=== PATIENT | female | born 1955 | race Caucasian/White ===

== ENCOUNTER 2017-06-24 12:07 | Emergency (ER) | payer SELFPAY ==
[2017-06-24 12:51] LABS: #Basophils 0.1 thou/uL (0.0-0.2); #Eosinphils 0.3 thou/uL (0.0-0.7); #Lymphocytes 1.3 thou/uL (1.20-3.40); #Monocytes 0.5 thou/uL (0.11-0.59); %Eosinophils 4.2 % (0.0-10.0); %Lymphocytes 21.6 % (21.0-51.0); %Monocytes 8.1 % (0.0-10.0); Hematocrit 41.9 % (36.0-47.0); Mean Platelet Volume 7.2 fL (7.4-10.4); Red Blood Cell (RBC) Count 4.74 mill/uL (4.20-5.40); White Blood Cell (WBC) Count 6.1 thou/uL (4.8-10.8)
[2017-06-24 13:15] LABS: Troponin I Less than 0.010 ng/mL (< 0.028)
[2017-06-24 13:18] LABS: ALT (SGPT) 21 U/L (8-55); AST (SGOT) 22 U/L (5-34); Alkaline Phosphatase 71 U/L (40-150); Anion Gap 11 mmol/L (10-20); BUN (Urea Nitrogen) 15 mg/dL (9.8-20.1); Bilirubin, Total 0.2 mg/dL (0.2-1.2); Calc. Creatinine Clearance 0 mL/min (70-130); Carbon Dioxide 31 mmol/L (23-31); Chloride 102 mmol/L (98-107); Estimated GFR-MDRD 72; Globulin 3.3 g/dL (2.4-3.5); Protein, Total 7.9 g/dL (6.0-8.3)
--- NOTE | 2017-06-24 13:23 | RAD ---
THREE VIEWS OF LEFT SHOULDER: INDICATION: Shoulder pain. COMPARISON: None. FINDINGS: No acute fracture or subluxation is evident. There is chondrocalcinosis within the left AC joint. V isualized left lung is clear. IMPRESSION: No acute osseous abnormality. POS: [facility]
--- NOTE | 2017-06-24 13:26 | RAD ---
AP VIEW OF THE CHEST: INDICATION: Cough. IMPRESSION: No acute cardiopulmonary abnormality. The examination has not appreciably changed from a comparison dated 10/06/15. POS: [facility]
[2017-06-24] MEDS ORDERED: Ketorolac Tromethamine 30 MG/ML VIAL ONE (13:37)
--- NOTE | 2017-06-24 13:55 | CT ---
CT BRAIN: History: Trauma. Worsening pain. Headache. Technique: Noncontrast enhanced CT images of the brain obtained from the base of the skull through th e vertex. Brain and bone windows obtained. FINDINGS: Images demonstrate the brain to be unremarkable. No evidence of intracranial masses, hemorrhages, str okes or contusions seen. Ventricles are of normal size. IMPRESSION: Unremarkable CT brain. POS: [facility]
== END 2017-06-24 14:53 | disposition home or self-care (01) ==
LOC: ERS 12:07
DX: M25.512 Pain in left shoulder (principal); J45.909 Unspecified asthma, uncomplicated; Z79.84 Long term (current) use of oral hypoglycemic drugs; Z79.899 Other long term (current) drug therapy; W17.89XA Other fall from one level to another, initial encounter
CPT/HCPCS: 70450; 71010; 80053; 82553; 84484; 85025; 93005; 96374; J1885

== ENCOUNTER 2017-08-01 12:24 | Emergency (ER) | payer SELFPAY ==
--- NOTE | 2017-08-01 13:00 | RAD ---
PORTABLE CHEST: Date: 08/01/17 HISTORY: Weakness and cough. FINDINGS: Lungs are clear. Heart and mediastinum appear normal. Vascular markings are normal. IMPRESSION: Unremarkable portable chest. POS: [facility]
[2017-08-01 13:09] LABS: #Eosinphils 0.2 thou/uL (0.0-0.7); #Lymphocytes 1.2 thou/uL (1.20-3.40); #Monocytes 0.4 thou/uL (0.11-0.59); #Neutrophils 2.6 thou/uL (1.40-6.50); %Eosinophils 4.6 % (0.0-10.0); %Lymphocytes 26.5 % (21.0-51.0); %Monocytes 9.2 % (0.0-10.0); %Neutrophils 58.8 % (42.0-75.0); Hemoglobin 12.8 g/dL (12.0-16.0); Mean Corpuscular HGB CONC 33.2 g/dL (32.0-36.0); Mean Corpuscular Hemoglobin 29.4 pg (27.0-31.0); Mean Corpuscular Volume 88.5 fl (81.0-99.0); Mean Platelet Volume 6.9 fL (7.4-10.4); Platelet Count 244 thou/uL (130-400); RBC Distribution Width 13.2 % (11.5-14.5); Red Blood Cell (RBC) Count 4.35 mill/uL (4.20-5.40); White Blood Cell (WBC) Count 4.5 thou/uL (4.8-10.8)
[2017-08-01 13:36] LABS: ALT (SGPT) 18 U/L (8-55); AST (SGOT) 18 U/L (5-34); Albumin 4.1 g/dL (3.4-4.8); Alkaline Phosphatase 75 U/L (40-150); Anion Gap 16 mmol/L (10-20); BUN (Urea Nitrogen) 23 mg/dL (9.8-20.1); Bilirubin, Total 0.2 mg/dL (0.2-1.2); CK (CPK) 42 U/L (29-168); Calc. Creatinine Clearance 0 mL/min (70-130); Calcium 9.7 mg/dL (7.8-10.44); Carbon Dioxide 24 mmol/L (23-31); Chloride 103 mmol/L (98-107); Estimated GFR-MDRD 82; Globulin 2.9 g/dL (2.4-3.5); Glucose 126 mg/dL (80-115); Potassium 3.8 mmol/L (3.5-5.1); Sodium 139 mmol/L (136-145)
[2017-08-01 13:39] LABS: Troponin I Less than 0.010 ng/mL (< 0.028)
[2017-08-01 14:31] LABS: Bilirubin Negative (Negative); Blood, Urine Negative (Negative); Clarity CLEAR (Clear); Glucose, Urine (Dipstick) >=1000 mg/dL (Negative); Leukocyte Negative (Negative); Nitrite Negative (Negative); Protein, Urine (Dipstick) Negative (Neg-Trace); Specific Gravity, Urine 1.028 (1.002-1.036); Urobilinogen 0.2 mg/dL (0.2-1.0); pH, Urine 6.5 (5.0-9.0)
--- NOTE | 2017-08-01 15:31 | CT ---
CT ANGIOGRAM THORAX WITH IV CONTRAST AND 3D RECONSTRUCTIONS: DATE: 08/01/17. HISTORY: Cough and dyspnea. Hemoptysis. COMPARISON: 10/06/15. FINDINGS: No filling defects are seen in the pulmonary artery system to suggest a pulmonary embolus. Thoracic aorta is normal in caliber without evidence of an aortic dissection. There is linear and patchy density seen within the lateral aspect of the right lower lobe probably re lated to atelectasis and/or area of scarring. There has been interval development of a small right p leural effusion and atelectasis. The left lung is clear. No discrete pulmonary nodule or mass is se en. There are post cholecystectomy changes with evidence of pneumobilia again present. Surgical clips ar e also seen in the region of the pancreatic head. No other interval change. IMPRESSION: 1. No CT evidence of a pulmonary embolus. 2. Findings likely related to atelectasis and/or scarring in the right lower lobe. 3. Interval development of a small right pleural effusion and atelectasis. POS: [facility]
[2017-08-01] MEDS ORDERED: ISOVUE-370 76%-LOCM 1 ML ONE (16:23)
== END 2017-08-01 16:46 | disposition home or self-care (01) ==
LOC: ERS 12:24
DX: B34.9 Viral infection, unspecified (principal); E86.0 Dehydration; J45.909 Unspecified asthma, uncomplicated; Z79.899 Other long term (current) drug therapy
CPT/HCPCS: 36415; 71045; 71275; 80053; 81003; 82553; 84484; 85025; 85379; 87804; 94640; 96360; 96361; J7620

== ENCOUNTER 2020-02-09 17:18 | Inpatient (IN) | payer OTHER, SELFPAY ==
[2020-02-09 17:50] LABS: #Eosinphils 0.2 thou/uL (0.0-0.7); #Monocytes 0.5 thou/uL (0.11-0.59); #Neutrophils 3.4 thou/uL (1.40-6.50); %Basophils 0.7 % (0.0-1.0); %Eosinophils 3.4 % (0.0-10.0); %Lymphocytes 32.6 % (21.0-51.0); %Monocytes 8.7 % (0.0-10.0); %Neutrophils 54.6 % (42.0-75.0); Hemoglobin 12.6 g/dL (12.0-16.0); Mean Corpuscular HGB CONC 34.5 g/dL (32.0-36.0); Mean Corpuscular Hemoglobin 30.7 pg (27.0-31.0); Mean Corpuscular Volume 89.1 fL (78.0-98.0); Mean Platelet Volume 7.8 fL (7.4-10.4); Platelet Count 257 thou/uL (130-400); RBC Distribution Width 12.3 % (11.5-14.5); Red Blood Cell (RBC) Count 4.11 mill/uL (4.20-5.40); White Blood Cell (WBC) Count 6.2 thou/uL (4.8-10.8)
--- NOTE | 2020-02-09 18:02 | RAD ---
EXAM: Single view of the chest HISTORY: Chest pain and palpitations COMPARISON: 08/01/2017 FINDINGS: Single view of the chest shows a normal sized cardiomediastinal silhouette. There is no gely dence of consolidation, mass, or pleural effusion. The bones are unremarkable IMPRESSION: No evidence of acute cardiopulmonary disease
[2020-02-09 18:13] LABS: ALT (SGPT) 19 U/L (8-55); AST (SGOT) 22 U/L (5-34); Albumin 4.1 g/dL (3.4-4.8); Alkaline Phosphatase 79 U/L (40-110); Anion Gap 15 mmol/L (10-20); BUN (Urea Nitrogen) 26 mg/dL (9.8-20.1); Bilirubin, Total Less than 0.2 mg/dL (0.2-1.2); CK (CPK) 29 U/L (29-168); Calc. Creatinine Clearance 0 mL/min (70-130); Calcium 9.8 mg/dL (7.8-10.44); Carbon Dioxide 27 mmol/L (23-31); Chloride 98 mmol/L (98-107); Estimated GFR-MDRD 69; Glucose 133 mg/dL (80-115); Potassium 3.9 mmol/L (3.5-5.1); Protein, Total 7.1 g/dL (6.0-8.3); Sodium 136 mmol/L (136-145)
[2020-02-09] MEDS ORDERED: Aspirin Chewable 81 MG TAB ONE (18:32)
[2020-02-09] MEDS ORDERED: HYDROcodone/Acetaminophen 5/325 mg Tablet PO PRN (19:38)
[2020-02-09] MEDS ORDERED: Calcium Carbonate 500 MG ChewTAB PO PRN (19:38)
[2020-02-09] MEDS ORDERED: Acetaminophen 650 MG Suppository PR PRN (19:38)
[2020-02-09] MEDS ORDERED: Nitroglycerin 0.4 MG TAB (25 Tab Bottle) PO PRN (19:38)
[2020-02-09] MEDS ORDERED: Acetaminophen 325 MG TAB PO PRN (19:38)
--- NOTE | 2020-02-09 19:42 | PDOC.HHP ---
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 patient states she was on her usual state of health until today when she started with palpitations. patient states she began to feel weak dizzy and ligheaded with a chest pressure , she took her blood pressure and it was on the 60s/40s range with elevated HR over the 100s, she states the bloop pressure machine had an alert for irregular heartbeat. patient refers this lasted for over 15mins for which she decided to come to hospital for evaluation. she states has a hx of PVCs for which metoprolol 50 was started but never had she had an episode like today. patient refers SOB which nebulizer did not improve and diaphoresis. patients describes her pain as retrosternal 8/10 at the worse intensity to radiated to L arm. Hospitalist ROS - Review of Systems All other systems reviewed; all pertinent +/- noted in HPI/Subj Hospitalist History - Past Surgical History Other Surgical History: partial pancretic resection - Family History Family History: reports: no pertinent history - Social History Smoking Status: Never smoker Alcohol: reports: Occassional Drugs: reports: none Living Situation: With Family - Exam General Appearance: NAD, awake alert Eye: PERRL, anicteric sclera ENT: normocephalic atraumatic, no oropharyngeal lesions Neck: supple, symmetric, no JVD Heart: RRR, no murmur, no gallops Respiratory: CTAB, no wheezes, no rales Gastrointestinal: soft, non-tender, non-distended, normal bowel sounds Extremities: no cyanosis, no clubbing, no edema Skin: normal turgor, no lesions, no rashes Neurological: cranial nerve grossly intact, normal sensation to touch, no weakness Musculoskeletal: normal tone, normal strength, no muscle wasting Psychiatric: normal affect, normal behavior, A&O x 3 Hospitalist Results - Labs Result Diagrams: 02/09/20 17:39 02/09/20 17:39 Lab results: WBC 6.2 thou/uL (4.8-10.8) 02/09/20 17:39 Hgb 12.6 g/dL (12.0-16.0) 02/09/20 17:39 Hct 36.6 % (36.0-47.0) 02/09/20 17:39 MCV 89.1 fL (78.0-98.0) 02/09/20 17:39 Plt Count 257 thou/uL (130-400) 02/09/20 17:39 Neutrophils % 54.6 % (42.0-75.0) 02/09/20 17:39 Sodium 136 mmol/L (136-145) 02/09/20 17:39 Potassium 3.9 mmol/L (3.5-5.1) 02/09/20 17:39 Chloride 98 mmol/L (98-107) 02/09/20 17:39 Carbon Dioxide 27 mmol/L (23-31) 02/09/20 17:39 BUN 26 mg/dL (9.8-20.1) H 02/09/20 17:39 Creatinine 0.83 mg/dL (0.6-1.1) 02/09/20 17:39 Glucose 133 mg/dL (80-115) H 02/09/20 17:39 Calcium 9.8 mg/dL (7.8-10.44) 02/09/20 17:39 Total Bilirubin Less than 0.2 mg/dL (0.2-1.2) L 02/09/20 17:39 AST 22 U/L (5-34) 02/09/20 17:39 ALT 19 U/L (8-55) 02/09/20 17:39 Alkaline Phosphatase 79 U/L (40-110) 02/09/20 17:39 Creatine Kinase 29 U/L (29-168) 02/09/20 17:39 Troponin I Less than 0.010 ng/mL (< 0.028) 02/09/20 17:39 Serum Total Protein 7.1 g/dL (6.0-8.3) 02/09/20 17:39 Albumin 4.1 g/dL (3.4-4.8) 02/09/20 17:39 Hospitalist H&P A/P - Problem (1) Chest pain Code(s): R07.9 - CHEST PAIN, UNSPECIFIED Status: Acute (2) Diabetes Code(s): E11.9 - TYPE 2 DIABETES MELLITUS WITHOUT COMPLICATIONS Status: Acute (3) Bronchial asthma Code(s): J45.909 - UNSPECIFIED ASTHMA, UNCOMPLICATED Status: Acute (4) Insulinoma Code(s): D13.7 - BENIGN NEOPLASM OF ENDOCRINE PANCREAS Status: Acute - Plan Plan: 64y/o female with stated pmhx who comes due to an episodes of chest pain associated hypotension tachycardia sob and ligheadness chest pain - hx of pvc started on beta marek by manager general - ekg w/o st ischemic changes - initial troponin negative, will trend - cardiac monitoring with telemetry - continue with beta marek - seems to be secondary to arrythmia - no electrolyte disturbances - 2d echo - evaluation of modifiable risk factors with lipid panel and a1c - cxr w/o effusion. normal cardiac silhouette insulinoma / DM - insulinoma s/p partial pancreas resection with resulting DM - long acting insulin - ss + acc - adjust as necessary bronchial asthma - continue home meds
[2020-02-09] MEDS ORDERED: Ondansetron ODT 4 MG TAB ONE (20:08)
[2020-02-09 20:36] LABS: Troponin I Less than 0.010 ng/mL (< 0.028)
[2020-02-09] MEDS ORDERED: Dextrose 50% Abboject 50 ML SYRINGE SLOW IVP PRN (21:08)
[2020-02-09] MEDS ORDERED: Dextrose 5% in Water 1,000 ML IV PRN (21:08)
[2020-02-09 23:33] LABS: Troponin I Less than 0.010 ng/mL (< 0.028)
[2020-02-10] MEDS ORDERED: traZODone HCl 50 MG TAB PO SCH (01:15)
[2020-02-10 04:41] LABS: Hemoglobin A1c 8.3 % (4.0-6.0)
[2020-02-10 04:59] LABS: Cardiac Risk 4.6 (Less than 4.5); Magnesium 1.7 mg/dL (1.6-2.6)
[2020-02-10] MEDS ORDERED: Carvedilol 3.125 MG TAB PO SCH (08:00)
[2020-02-10] MEDS ORDERED: Sodium Chloride 0.9% 10 ML ONE (08:29)
[2020-02-10] MEDS ORDERED: Magnesium Sulfate 4 GM in Sodium Chloride 0.9% 250 ML 250 ML IVPB SCH (08:30)
[2020-02-10] MEDS ORDERED: Metoprolol Tartrate 50 MG TAB PO SCH (09:00)
[2020-02-10] MEDS: Aspirin 325 mg Enteric Coated Tablet PO SCH (09:35)
[2020-02-10] MEDS: Enoxaparin Sodium 40 MG/0.4 ML SYRINGE SC SCH (09:36)
[2020-02-10] MEDS ORDERED: Metoprolol Tartrate 25 MG TAB PO SCH (10:00)
[2020-02-10] MEDS: HumaLOG 300 UNITS/3 ML VIAL SC PRN ×3 (11:02→17:50)
--- NOTE | 2020-02-10 13:07 | PDOC.HOSPP ---
- Subjective Encounter Date: 02/10/20 Encounter Time: 10:00 Subjective: Patient seen and examined for chest discomfort along with palpitations. She also had hypotension with blood pressure in 60s at home. Denies any chest discomfort at this time. She feels dizzy especially on ambulation. - Objective Vital Signs & Weight: Vital Signs (12 hours) Temp Pulse Resp BP Pulse Ox 02/10/20 08:00 97.6 F 96 16 95/66 96 02/10/20 04:02 98.4 F 91 16 93/58 L 94 L Weight Weight 163 lb 14.4 oz I&O: 02/09/20 02/10/20 02/11/20 06:59 06:59 06:59 Intake Total 700 Balance 700 Result Diagrams: 02/09/20 17:39 02/09/20 17:39 Additional Labs: Accuchecks 02/10/20 11:05 POC Glucose 197 H EKG Reviewed by me: Yes (, Sánchez) Hospitalist ROS - Review of Systems Respiratory: denies: cough, dry, shortness of breath, hemoptysis, SOB with excertion, pleuritic pain, sputum, wheezing, other Cardiovascular: denies: chest pain, palpitations, orthopnea, paroxysmal noc. dyspnea, edema, light headedness, other Gastrointestinal: denies: nausea, vomiting, abdominal pain, diarrhea, constipation, melena, hematochezia, other - Medication Medications: Active Medications Generic Name Dose Route Start Last Admin Trade Name Freq PRN Reason Stop Dose Admin Hydrocodone Bitart/Acetaminophen 1 tab 02/09/20 19:38 02/10/20 09:34 [place] 5/325 PO 1 tab Q4H PRN Administration Moderate Pain (4-6) Aspirin 325 mg 02/10/20 09:00 02/10/20 09:35 Ecotrin PO 325 mg DAILY MONICA Administration Enoxaparin Sodium 40 mg 02/10/20 09:00 02/10/20 09:36 Lovenox SC 40 mg 0900 MONICA Administration Insulin Human Lispro 0 units 02/09/20 21:08 02/10/20 11:02 Humalog SC 2 unit .MILD SLIDING SCALE PRN Administration Mild Correctional Scale - Exam General Appearance: NAD Neck: supple, no JVD Heart: RRR, no gallops, no rubs, normal peripheral pulses Respiratory: no wheezes, no rales, no ronchi, normal chest expansion Gastrointestinal: soft, non-distended, normal bowel sounds, no guarding, no rigidity Extremities: no cyanosis, no clubbing, no edema Extremities - other findings: no calf tenderness Neurological: no focal deficits Psychiatric: normal affect, A&O x 3 Hosp A/P - Plan DVT proph w/lovenox, DVT proph w/SCDs CP/Near syncope with hypotension with blood pressure of 60/40 Palpitations probably due to symptomatic PVCs Hypomagnesemia Mitral valve prolapse Diabetes mellitus type 2 Moderate persistent asthma History of insulinoma requiring partial pancreatic resection Chronic pain syndrome Dyslipidemia CKD stage II Plan: Reduce metoprolol to 12.5 mg twice daily due to relative hypotension. Continue Lantus at 20 units nightly. Replace potassium. Restart selected home medications including trazodone. Hold lisinopril for now due to hypotension. Await cardiology input. Echocardiogram. Check orthostatic vitals. Recheck labs in a.m. Patient understands above plan of care.
[2020-02-10] MEDS ORDERED: Acetaminophen/Codeine 30-300mg Tablet PO PRN (13:08)
[2020-02-10] MEDS ORDERED: Non-Formulary Item 1 EACH (Albuterol Sulfate [Proair Hfa] 1 PUFF) PO PRN (13:08)
[2020-02-10 15:00] LABS: SARS-CoV-2 MS2 Positive; SARS-CoV-2 N Gene Negative; SARS-CoV-2 S Gene Negative; SARS-CoV-2 by NAA Not Detected (NotDetected); SARS-CoV-2 orf1ab Negative
--- NOTE | 2020-02-10 15:35 | CON ---
DATE OF CONSULTATION: 02/10/2020 REASON FOR CONSULTATION: Chest pain. PRIMARY FRONT WINDOW CASHIER: Adriano Lopez MD HISTORY OF PRESENT ILLNESS: Ms. Youssef is a very pleasant 64-year-old white female, who comes to the hospital for chest pain. She has noted a brief episode of palpitations that accompany mild chest discomfort. She had not felt well all day, felt weak and dizzy, lightheaded, felt some chest pressure, checked her blood pressure, it was . She noticed her heart rate was also in the 100. She decided to come to the hospital for further evaluation. Here in the hospital, her blood pressure was doing a lot better. Currently, on my evaluation, she is chest-pain free. She has been diagnosed with nonsustained VT in the past and had a normal stress test about 3 or 4 years ago at an outside facility. On my evaluation, she is chest pain free and feeling a lot better. PAST MEDICAL HISTORY: 1. Bronchial asthma. 2. Mitral valve prolapse. 3. Insulinoma, status post partial pancreatic resection, on insulin. 4. Hypertension. 5. COPD. 6. Hypothyroidism. SURGICAL HISTORY: 1. Eye surgery in 1965. 2. . 3. Foot surgery on the left. 4. Tumor removed in lung. 5. Hernia repair. OUTPATIENT MEDICATIONS: 1. Metformin 1000 mg twice a day. 2. Glipizide 10 mg twice a day. 3. Trazodone. 4. Symbicort two puffs twice a day. 5. Synthroid 25 mcg a day. 6. Proventil p.r.n. 7. Metoprolol succinate 25 mg a day. 8. Lisinopril 10 mg a day. 9. Triamcinolone acetonide cream. FAMILY HISTORY: Father diagnosed with heart disease at 35 years of age apparently. SOCIAL HISTORY: No alcohol, tobacco, or drugs. REVIEW OF SYSTEMS: A 12-point review of systems was done and was found to be negative other than stated in the history of present illness. PHYSICAL EXAMINATION: VITAL SIGNS: Temperature 98.6, pulse 96, respiratory rate 16, saturating 98% on room air, blood pressure 118/86. GENERAL: Awake, alert, oriented x3, in no distress. HEENT: Normocephalic and atraumatic. NECK: Supple. LUNGS: Clear. CARDIOVASCULAR: S1 and S2. No S3 or S4. No murmurs. ABDOMEN: Soft. Positive bowel sounds. EXTREMITIES: No edema. SKIN: Warm and dry. LABORATORY DATA: Laboratory work was reviewed. CBC with a white count of 6, hemoglobin of 12, hematocrit 36, platelet count 257. Chemistries were unremarkable except for BUN of 26, creatinine 0.83, GFR was 69, glucose 133. A1c was 8.3. Troponin was negative x3. Triglycerides of 258, total cholesterol of 251, LDL of 144, HDL of 55. TSH was normal. IMAGING STUDIES: EKG was reviewed. Chest x-ray was reviewed. ASSESSMENT AND PLAN: 1. Atypical chest pain. 2. History of PVCs. PLAN: We will further risk stratify with a stress test. We will plan on doing a nuclear stress test. She tells me that she is unable to get on a treadmill. She is just weak all the time. Thank you for letting us to participate in the care of your patient. Dr. Lopez, her primary theoretical physicist will follow up in the morning with further recommendations per results of stress testing. Job ID: [id number]
[2020-02-10] MEDS: HYDROcodone/Acetaminophen 5/325 mg Tablet PO PRN (17:45)
[2020-02-10] MEDS: metFORMIN 500 MG TAB PO SCH (17:49)
[2020-02-10] MEDS: Senokot S 8.6-50 MG TAB PO PRN (18:34)
[2020-02-10] MEDS: Insulin Glargine 20 UNITS in Pre-Filled Syringe 1 EACH SC SCH (21:30)
[2020-02-10] MEDS: traZODone HCl 50 MG TAB PO SCH (21:30)
[2020-02-10] MEDS: Metoprolol Tartrate 25 MG TAB PO SCH (21:30)
[2020-02-11 05:15] LABS: Anion Gap 11 mmol/L (10-20); BUN (Urea Nitrogen) 25 mg/dL (9.8-20.1); Calc. Creatinine Clearance 84 mL/min (70-130); Calcium 9.3 mg/dL (7.8-10.44); Carbon Dioxide 29 mmol/L (23-31); Chloride 99 mmol/L (98-107); Estimated GFR-MDRD 68; Glucose 234 mg/dL (80-115); Magnesium 1.8 mg/dL (1.6-2.6); Potassium 4.2 mmol/L (3.5-5.1); Sodium 135 mmol/L (136-145)
[2020-02-11] MEDS: metFORMIN 500 MG TAB PO SCH ×2 (08:49→17:16)
[2020-02-11] MEDS ORDERED: Regadenoson 0.4 MG/5 ML SYRINGE ONE (11:08)
--- NOTE | 2020-02-11 11:24 | NM ---
EXAM: NM Cardiac Stress W EF WF PROVIDED CLINICAL HISTORY: Chest pain COMPARISON: None FINDINGS: There is a small fixed defects in the distal anteroseptal wall and at the apex. No reversible defect is identified. Quantitative analysis shows a very small mild fixed defect at the apex. Gated images demonstrate normal ventricular wall motion and wall thickening. The calculated left ventricular eject ion fraction is 78%. IMPRESSION: 1. Small relatively fixed defect at the apex which may represent mild apical thinning or very small a caitlin of scarring. No signal reversible defect is seen to suggest ischemia. 2. Normal LVEF of 78%.
[2020-02-11] MEDS: Metoprolol Tartrate 25 MG TAB PO SCH ×2 (12:01→20:45)
[2020-02-11] MEDS: HYDROcodone/Acetaminophen 5/325 mg Tablet PO PRN ×2 (12:02→16:24)
[2020-02-11] MEDS: Aspirin 325 mg Enteric Coated Tablet PO SCH (12:03)
[2020-02-11] MEDS: Enoxaparin Sodium 40 MG/0.4 ML SYRINGE SC SCH (12:03)
[2020-02-11] MEDS: Senokot S 8.6-50 MG TAB PO PRN (12:03)
[2020-02-11] MEDS: HumaLOG 300 UNITS/3 ML VIAL SC PRN (12:03)
[2020-02-11 14:04] VITALS: BMI 31.1
--- NOTE | 2020-02-11 19:39 | PDOC.HOSPP ---
- Subjective Encounter Date: 02/11/20 Encounter Time: 14:00 Subjective: Patient seen and examined for chest discomfort along with lightheadedness/ hypotension. Continues to feel lightheaded and dizzy. Orthostatic vitals were positive today. No new chest pain reported. - Objective Vital Signs & Weight: Vital Signs (12 hours) Temp Pulse Resp BP BP Pulse Ox 02/11/20 19:20 97.8 F 85 18 98/53 L 94 L 02/11/20 15:00 97.6 F 89 18 111/68 94 L 02/11/20 11:04 97.6 F 100 18 128/59 L 94 L Weight Admit Weight 163 lb 14.4 oz Weight 172 lb 11.2 oz I&O: 02/10/20 02/11/20 02/12/20 06:59 06:59 06:59 Intake Total 700 1508 960 Balance 700 1508 960 Result Diagrams: 02/09/20 17:39 02/11/20 04:31 Additional Labs: Accuchecks 02/11/20 02/11/20 02/10/20 16:45 11:15 21:19 POC Glucose 194 H 259 H 143 H 02/10/20 17:08 POC Glucose 216 H Radiology Reviewed by me: No (Stress testno reversible ischemia) EKG Reviewed by me: Yes (Sinus rhythm with frequent PVCs on telemetry monitoring ) Hospitalist ROS - Review of Systems Respiratory: denies: cough, dry, shortness of breath, hemoptysis, SOB with excertion, pleuritic pain, sputum, wheezing, other Cardiovascular: reports: light headedness. denies: chest pain, palpitations, orthopnea, paroxysmal noc. dyspnea, edema, other - Medication Medications: Active Medications Generic Name Dose Route Start Last Admin Trade Name Freq PRN Reason Stop Dose Admin Acetaminophen/Codeine Phosphate 1 tab 02/10/20 13:08 02/11/20 08:10 Tylenol #3 PO 1 tab Q8H PRN Administration Moderate Pain (4-6) Hydrocodone Bitart/Acetaminophen 1 tab 02/09/20 19:38 02/10/20 09:34 [place] 5/325 PO 1 tab Q4H PRN Administration Moderate Pain (4-6) Hydrocodone Bitart/Acetaminophen 2 tab 02/09/20 19:38 02/11/20 16:24 [place] 5/325 PO 2 tab Q4H PRN Administration Severe Pain (7-10) Enoxaparin Sodium 40 mg 02/10/20 09:00 02/11/20 12:03 Lovenox SC 40 mg 0900 MONICA Administration Insulin Glargine 20 units/ 0.2 mls @ 0 mls/hr 02/10/20 21:00 02/10/20 21:30 Miscellaneous Medication SC 0.2 mls HS MONICA Administration Insulin Human Lispro 0 units 02/09/20 21:08 02/11/20 12:03 Humalog SC 4 unit .MILD SLIDING SCALE PRN Administration Mild Correctional Scale Metformin HCl 1,000 mg 02/10/20 17:00 02/11/20 17:16 Glucophage PO 1,000 mg BID-WM MONICA Administration Metoprolol Tartrate 12.5 mg 02/10/20 21:00 02/11/20 12:01 Lopressor PO 12.5 mg BID MONICA Administration Senna/Docusate Sodium 2 tab 02/10/20 13:09 02/11/20 12:03 Senokot S PO 2 tab BIDPRN PRN Administration Constipation Trazodone HCl 200 mg 02/10/20 21:00 02/10/20 21:30 Desyrel PO 200 mg HS MONICA Administration - Exam General Appearance: NAD Heart: no gallops, no rubs Respiratory: no wheezes, no ronchi Gastrointestinal: soft, non-distended Extremities: no cyanosis Hosp A/P - Plan DVT proph w/lovenox, DVT proph w/SCDs CP/Near syncope with hypotension with blood pressure of 60/40 Palpitations probably due to symptomatic PVCs Hypomagnesemia Mitral valve prolapse Diabetes mellitus type 2 Moderate persistent asthma History of insulinoma requiring partial pancreatic resection Chronic pain syndrome Dyslipidemia CKD stage II Plan: 02/10 Patient dropped her blood pressure to 101/66 from 130/75. She was symptomatic. Patient is on very low-dose of metoprolol 12.5 mg twice daily for PVCs. I discussed with cardiology who recommended electrophysiology consultation. Echocardiogram is pending at this time. Magnesium will be replaced. Continue fall precautions. Continue to monitor. Recheck labs in a.m. Repeat orthostatic vitals in a.m. continue other medications as above reduce aspirin to 81 mg 02/09 Reduce metoprolol to 12.5 mg twice daily due to relative hypotension. Continue Lantus at 20 units nightly. Replace potassium. Restart selected home medications including trazodone. Hold lisinopril for now due to hypotension. Await cardiology input. Echocardiogram. Check orthostatic vitals. Recheck labs in a.m. Patient understands above plan of care.
[2020-02-11] MEDS ORDERED: Magnesium 2 GM/50 ML 2 GM in Premix Bag 1 BAG IVPB SCH (19:45)
[2020-02-11] MEDS: Insulin Glargine 20 UNITS in Pre-Filled Syringe 1 EACH SC SCH (20:45)
[2020-02-11] MEDS: traZODone HCl 50 MG TAB PO SCH (20:45)
[2020-02-12] MEDS: HYDROcodone/Acetaminophen 5/325 mg Tablet PO PRN ×4 (04:19→17:08)
[2020-02-12 04:42] LABS: #Eosinphils 0.2 thou/uL (0.0-0.7); #Lymphocytes 1.7 thou/uL (1.20-3.40); #Monocytes 0.4 thou/uL (0.11-0.59); %Basophils 0.2 % (0.0-1.0); %Eosinophils 3.8 % (0.0-10.0); %Lymphocytes 39.4 % (21.0-51.0); %Monocytes 9.9 % (0.0-10.0); %Neutrophils 46.7 % (42.0-75.0); Hemoglobin 10.4 g/dL (12.0-16.0); Mean Corpuscular HGB CONC 32.2 g/dL (32.0-36.0); Mean Corpuscular Hemoglobin 28.8 pg (27.0-31.0); Mean Corpuscular Volume 89.4 fL (78.0-98.0); Mean Platelet Volume 7.9 fL (7.4-10.4); Platelet Count 209 thou/uL (130-400); RBC Distribution Width 12.2 % (11.5-14.5); Red Blood Cell (RBC) Count 3.61 mill/uL (4.20-5.40); White Blood Cell (WBC) Count 4.2 thou/uL (4.8-10.8)
[2020-02-12 05:00] LABS: Albumin 3.5 g/dL (3.4-4.8); Anion Gap 10 mmol/L (10-20); BUN (Urea Nitrogen) 19 mg/dL (9.8-20.1); BUN/Creatinine Ratio 24.68; Calc. Creatinine Clearance 96 mL/min (70-130); Calcium 8.6 mg/dL (7.8-10.44); Carbon Dioxide 28 mmol/L (23-31); Chloride 101 mmol/L (98-107); Estimated GFR-MDRD 76; Glucose 170 mg/dL (80-115); Magnesium 1.8 mg/dL (1.6-2.6); Phosphorus 3.7 mg/dL (2.3-4.7); Potassium 3.9 mmol/L (3.5-5.1); Sodium 135 mmol/L (136-145)
[2020-02-12] MEDS: HumaLOG 300 UNITS/3 ML VIAL SC PRN ×2 (06:30→11:15)
[2020-02-12] MEDS: Metoprolol Tartrate 25 MG TAB PO SCH (08:28)
[2020-02-12] MEDS: metFORMIN 500 MG TAB PO SCH ×2 (08:28→17:08)
[2020-02-12] MEDS: Aspirin 81 mg Enteric Coated Tablet PO SCH (08:28)
[2020-02-12] MEDS: Enoxaparin Sodium 40 MG/0.4 ML SYRINGE SC SCH (08:28)
[2020-02-12] MEDS: Senokot S 8.6-50 MG TAB PO PRN ×2 (08:31→17:08)
[2020-02-12] MEDS ORDERED: Magnesium 2 GM/50 ML 2 GM in Premix Bag 1 BAG IVPB SCH (09:15)
[2020-02-12] MEDS ORDERED: Flecainide 50 MG TAB PO SCH (09:45)
[2020-02-12] MEDS: Promethazine 25 MG TAB PO PRN ×2 (12:49→21:35)
--- NOTE | 2020-02-12 12:59 | DIS ---
DATE OF ADMISSION: 02/09/2020 DATE OF DISCHARGE: 02/12/2020 DISCHARGE DISPOSITION: Home. FOLLOWUP: 1. Follow up with Cardiology, Dr. Lopez; Electrophysiology, Dr. Krishnamurthy in 2 to 3 weeks. 2. Follow up with primary care physician, Alpa Casey in 1 week. ALLERGIES: THE PATIENT IS ALLERGIC TO BACTRIM, PENICILLIN, AND CLARITHROMYCIN. DISCHARGE MEDICATIONS: Flecainide 50 mg b.i.d. Metoprolol and lisinopril were discontinued due to orthostatic hypotension. All other home medications were left unchanged. The patient was seen and examined on the day of discharge. Denies any new complaints. No chest pain, shortness of breath, or palpitations reported. BRIEF HOSPITAL COURSE: The patient is a 64-year-old female with symptomatic PVCs, on metoprolol, presented to the hospital with chest discomfort along with lightheadedness, dizziness, and hypotension. Her blood pressure at home was systolic 60 with diastolic of 40 with heart rate over 100s. Please refer to the history and physical for further details. The patient was admitted to the hospital with a diagnosis of chest discomfort along with hypotension and severe symptomatic PVCs. The patient was monitored on the telemetry unit. Metoprolol dose was reduced to 12.5 mg b.i.d. Despite this, she persistently had orthostatic hypotension with symptomatic PVCs. For this reason, the patient was also evaluated by Electrophysiology, Dr. Krishnamurthy, who recommended adding flecainide 50 mg b.i.d. to suppress PVCs. She was advised to follow up with Electrophysiology and Cardiology in 2 to 3 weeks for possible consideration for LINQ monitor. Lisinopril and metoprolol will be held for now. The patient was advised to monitor blood pressure on a daily basis and to maintain a log. She also had a Cardiolite stress test that was negative for reversible ischemia. There was a small relatively fixed defect at the apex, which may represent scar versus mild apical thinning. An echocardiogram was obtained that showed ejection fraction 55% to 60% with grade 1/3 diastolic dysfunction, mildly dilated left atrium, mild mitral regurgitation, mild tricuspid regurgitation. The patient appears stable for discharge. FINAL DIAGNOSES: 1. Chest discomfort, acute coronary syndrome ruled out. 2. Near syncope with orthostatic hypotension. Blood pressure at home was 60/40. 3. Palpitations due to severe symptomatic premature ventricular contractions, started on flecainide this admission. 4. Hypomagnesemia, replaced. 5. History of mitral valve prolapse. 6. Diabetes mellitus type 2. 7. Moderate persistent asthma. 8. History of insulinoma, requiring partial pancreatic resection. 9. Chronic pain syndrome. 10. Dyslipidemia. 11. Chronic kidney disease, stage 2. 12. Obesity with a BMI of 32.1. The patient understands the above plan of care. Job ID: [id number]
--- NOTE | 2020-02-12 13:59 | CON ---
DATE OF CONSULTATION: 02/12/2020 REFERRING PHYSICIAN: Adriano Lopez MD I am seeing Ms. Youssef at our [facility] telemetry floor for Electrophysiology Consultation. Her problems are: 1. Frequent PVCs with occasional triplets and bigeminy noted in the past. a. Poor tolerance of beta-marek therapy due to borderline blood pressures. 2. History of syncope x3. a. Event monitor for 30 days was reportedly negative per Dr. Lopez's office. 3. No evidence of structural heart disease. a. Nuclear stress test from 02/10/2020 shows normal LVEF of 78%, small fixed defect in the apex, scar versus staining. No ischemia. b. 2D echo from 02/10/2020 shows LVEF 55% to 60%, mild left atrial enlargement, mild MR and TR, diastolic dysfunction. 4. Insulinoma, status post pancreas resection. a. Type 2 diabetes with labile blood sugars. 5. Hypertension. 6. COPD. ALLERGIES: CLARITHROMYCIN, SHELLFISH, SULFAMETHOXAZOLE, AND PENICILLIN. MEDICATIONS AT HOME: Included; 1. Metformin. 2. Trazodone. 3. Senokot. 4. Budesonide. 5. ProAir inhalers. 6. Tylenol with Codeine. 7. Insulin Levemir. 8. Glipizide. 9. Metoprolol tartrate. 10. Lisinopril. 11. Docusate. SUBJECTIVE: Ms. Youssef is here due to atypical chest pains and skipping heartbeat sensation. She also noticed her blood pressure to be borderline low and came to the hospital. She was evaluated by the hospitalist and Cardiology Service, noted to have atypical chest pains and negative troponins x3. She underwent an echo and stress test with results as above, and she was noted to have the continued frequent PVCs in 10% to 20% range. She overall is feeling better now. Chest pain resolved. Blood pressure is still borderline, but she is not symptomatic with them. Metoprolol has been reduced. Potassium and magnesium replaced. No sustained ventricular arrhythmias are seen. Rest of 12-point review of system otherwise unremarkable except for migraine headaches on occasion, but not currently. PAST HISTORY: As above. Again, she has chronic headaches, although not been evaluated, possible migraine. 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 FAMILY HISTORY: Significant for siblings having vasospastic angina. Mother with heart disease. Father at age 35 due to heart disease. SOCIAL HISTORY: She is a nonsmoker. Denies EtOH or drug use. OBJECTIVE DATA: VITAL SIGNS: Blood pressure is currently 90/62, heart rate 77, respirations 16, and O2 saturation 92%. The initial blood pressure in the ER was 117/51, although at home, her blood pressure measurements are much lower. GENERAL: Alert and oriented woman, with slightly elevated BMI. NECK: Supple. No jugular venous distention. CHEST: Coarse without crackles. CARDIAC: Heart sounds are regular to rate and rhythm. No murmur or gallop. ABDOMEN: Benign. Bowel sounds are positive. No hepatosplenomegaly or masses are detected. EXTREMITIES: Lower extremity without edema, clubbing, or cyanosis. Pulses are adequate. NEUROLOGIC: The patient is nonfocal. MUSCULOSKELETAL: Without joint swelling or deformities. SKIN: Without rash. Prior surgical scars noted. DATABASE: The white cell count is 4.2, hemoglobin 10.4, and platelet count is 209. Sodium 135, potassium 3.9, BUN is 9, and creatinine 0.77. The magnesium is 1.8 , 1.7 on admission. COVID-19 PCR was negative. The echo and nuclear stress test as above. The chest x-ray was without any acute pulmonary disease. EKG is reviewed. Baseline EKG on February 08 revealing sinus rhythm with frequent monomorphic PVCs , which are left bundle inferior axis in morphology transitioning between V2 and V3 seen. The normal QRS complexes, otherwise with narrow QRS. QTc is 436. Telemetry strips revealed continued frequent PVCs, occasional bigeminy. ASSESSMENT: Mrs. Youssef is a very pleasant 64-year-old woman with prior history of pancreas resection due to insulinoma related to diabetes, hypertension, chronic obstructive pulmonary disease. She has frequent PVCs noted in the past even nonsustained ventricular arrhythmia runs in the past. She had prior syncopal spell with subsequent monitoring without documentation of sustained tachyarrhythmia or bradyarrhythmia. Now, she presents with atypical chest pains, underwent full cardiac evaluation revealing no significant structural heart disease. Her PVCs do continue. She is unable to tolerate her beta-marek therapy hence the borderline blood pressures. PLAN: 1. Regarding her frequent PVCs, we discussed treatment options and anti- arrhythmic agents are a consideration, class Ic antiarhythmics and structural heart disease is a potential option. I will initiate flecainide 100 mg twice a day. EKG monitoring is requested in the near future if discharged. 2. Potential future ablation options also discussed. We will discuss again further in an office followup in next couple of weeks. 3. History of syncopal spells. Exact etiology is unclear. Ventricular arrhythmias are a remote possibility, although borderline blood pressures also potentially could play a role. EP study could be performed to assess induction of ventricular arrhythmias, but long-term monitoring with loop recorder also a potential option. 4. Borderline blood pressure, likely worsened by beta-marek therapy; reduce as already done by Dr. Penaloza. 5. Atypical chest pains. Negative workup as per Dr. Lopez. Followup will be in the office in the next 2 to 4 weeks. Thank you again for letting me participate in care of this patient. Job ID: [id number] [facility]ENTER[facility]
--- NOTE | 2020-02-12 19:35 | PDOC.HOSPP ---
- Subjective Encounter Date: 02/12/20 Encounter Time: 10:00 Subjective: Patient seen and examined for chest discomfort with lightheadedness. Denies any chest discomfort. Feels lightheaded. Intermittent palpitations. - Objective Vital Signs & Weight: Vital Signs (12 hours) Temp Pulse Resp BP Pulse Ox 02/12/20 16:01 97.8 F 96 17 113/60 92 L 02/12/20 11:13 98.1 F 84 16 130/69 94 L Weight Admit Weight 163 lb 14.4 oz Weight 178 lb 8 oz I&O: 02/11/20 02/12/20 02/13/20 06:59 06:59 06:59 Intake Total 1508 1200 1250 Balance 1508 1200 1250 Result Diagrams: 02/12/20 03:57 02/13/20 04:19 Additional Labs: Accuchecks 02/12/20 02/12/20 02/12/20 16:33 10:32 06:25 POC Glucose 118 H 236 H 183 H 02/11/20 20:52 POC Glucose 262 H EKG Reviewed by me: Yes (SR/PVCs) Hospitalist ROS - Review of Systems Respiratory: denies: cough, dry, shortness of breath, hemoptysis, SOB with excertion, pleuritic pain, sputum, wheezing, other Cardiovascular: reports: palpitations - Medication Medications: Active Medications Generic Name Dose Route Start Last Admin Trade Name Freq PRN Reason Stop Dose Admin Acetaminophen/Codeine Phosphate 1 tab 02/10/20 13:08 02/11/20 08:10 Tylenol #3 PO 1 tab Q8H PRN Administration Moderate Pain (4-6) Hydrocodone Bitart/Acetaminophen 1 tab 02/09/20 19:38 02/10/20 09:34 [place] 5/325 PO 1 tab Q4H PRN Administration Moderate Pain (4-6) Hydrocodone Bitart/Acetaminophen 2 tab 02/09/20 19:38 02/12/20 17:08 [place] 5/325 PO 2 tab Q4H PRN Administration Severe Pain (7-10) Aspirin 81 mg 02/12/20 09:00 02/12/20 08:28 Ecotrin PO 81 mg DAILY MONICA Administration Enoxaparin Sodium 40 mg 02/10/20 09:00 02/12/20 08:28 Lovenox SC 40 mg 0900 MONICA Administration Insulin Glargine 20 units/ 0.2 mls @ 0 mls/hr 02/10/20 21:00 02/11/20 20:45 Miscellaneous Medication SC 0.2 mls HS MONICA Administration Insulin Human Lispro 0 units 02/09/20 21:08 02/12/20 11:15 Humalog SC 3 unit .MILD SLIDING SCALE PRN Administration Mild Correctional Scale Metformin HCl 1,000 mg 02/10/20 17:00 02/12/20 17:08 Glucophage PO 1,000 mg BID-WM MONICA Administration Promethazine HCl 25 mg 02/12/20 12:33 02/12/20 12:49 Phenergan PO 25 mg Q4H PRN Administration Nausea Senna/Docusate Sodium 2 tab 02/10/20 13:09 02/12/20 17:08 Senokot S PO 2 tab BIDPRN PRN Administration Constipation Trazodone HCl 200 mg 02/10/20 21:00 02/11/20 20:45 Desyrel PO 200 mg HS MONICA Administration - Exam General Appearance: NAD Neck: symmetric, no JVD Heart: RRR, no gallops Respiratory: no wheezes, no ronchi Gastrointestinal: soft, non-distended Extremities: no cyanosis Neurological: no new deficit Hosp A/P - Plan DVT proph w/SCDs CP/Near syncope with hypotension with blood pressure of 60/40 Palpitations probably due to symptomatic PVCs Hypomagnesemia Mitral valve prolapse Diabetes mellitus type 2 Moderate persistent asthma History of insulinoma requiring partial pancreatic resection Chronic pain syndrome Dyslipidemia CKD stage II Plan: 02/11 Case discussed with cardiology and electrophysiology. Will start flecainide. Discontinue metoprolol. Replace magnesium update stable for discharge after lunch. Update@1300. Patient developed nausea along with vomiting after eating. Feels generally weak and fatigue. Notified cardiology and electrophysiology. Continue flecainide. Loop recorder in a.m. recheck labs in a.m. 02/10 Patient dropped her blood pressure to 101/66 from 130/75. She was symptomatic. Patient is on very low-dose of metoprolol 12.5 mg twice daily for PVCs. I discussed with cardiology who recommended electrophysiology consultation. Echocardiogram is pending at this time. Magnesium will be replaced. Continue fall precautions. Continue to monitor. Recheck labs in a.m. Repeat orthostatic vitals in a.m. continue other medications as above reduce aspirin to 81 mg / Reduce metoprolol to 12.5 mg twice daily due to relative hypotension. Continue Lantus at 20 units nightly. Replace potassium. Restart selected home medications including trazodone. Hold lisinopril for now due to hypotension. Await cardiology input. Echocardiogram. Check orthostatic vitals. Recheck labs in a.m. Patient understands above plan of care.
[2020-02-12] MEDS ORDERED: Insulin Glargine 10 UNITS in Pre-Filled Syringe 1 EACH SC SCH (21:00)
[2020-02-12] MEDS: traZODone HCl 50 MG TAB PO SCH (21:27)
[2020-02-12] MEDS: Flecainide 50 MG TAB PO SCH (21:28)
[2020-02-13 04:48] LABS: Albumin 3.7 g/dL (3.4-4.8); Anion Gap 12 mmol/L (10-20); BUN (Urea Nitrogen) 21 mg/dL (9.8-20.1); BUN/Creatinine Ratio 27.27; Calc. Creatinine Clearance 91 mL/min (70-130); Calcium 9.1 mg/dL (7.8-10.44); Carbon Dioxide 27 mmol/L (23-31); Chloride 99 mmol/L (98-107); Estimated GFR-MDRD 76; Glucose 176 mg/dL (80-115); Magnesium 1.7 mg/dL (1.6-2.6); Phosphorus 3.3 mg/dL (2.3-4.7); Potassium 4.4 mmol/L (3.5-5.1); Sodium 134 mmol/L (136-145)
[2020-02-13] MEDS: Sodium Chloride 0.9% 1,000 ML IV SCH ×2 (05:50→17:21)
[2020-02-13] MEDS ORDERED: Lidocaine 1% w/Epinephrine 1:100K 20 ML VIAL ONE ×2 (06:59→07:25)
[2020-02-13] MEDS: metFORMIN 500 MG TAB PO SCH (09:15)
[2020-02-13] MEDS: HYDROcodone/Acetaminophen 5/325 mg Tablet PO PRN (09:16)
[2020-02-13] MEDS: Enoxaparin Sodium 40 MG/0.4 ML SYRINGE SC SCH (09:17)
[2020-02-13] MEDS: Aspirin 81 mg Enteric Coated Tablet PO SCH (09:17)
[2020-02-13] MEDS: Flecainide 50 MG TAB PO SCH (09:17)
[2020-02-13] MEDS: Senokot S 8.6-50 MG TAB PO PRN (09:37)
[2020-02-13] MEDS ORDERED: Magnesium Sulfate 4 GM in Sodium Chloride 0.9% 250 ML 250 ML IVPB SCH (10:15)
[2020-02-13] MEDS: HumaLOG 300 UNITS/3 ML VIAL SC PRN (12:32)
[2020-02-13 15:53] VITALS: TEMP 98.3
--- NOTE | 2020-02-13 15:56 | DIS ---
DATE OF ADMISSION: 02/09/2020 DATE OF DISCHARGE: 02/13/2020 DISCHARGE DISPOSITION: Home. FOLLOWUP: 1. Follow up with Cardiology, Dr. Lopez; Electrophysiology, Dr. Krishnamurthy in 2 to 3 weeks. 2. Follow up with primary care physician, Alpa Casey in 1 week. ALLERGIES: THE PATIENT IS ALLERGIC TO BACTRIM, PENICILLIN, AND CLARITHROMYCIN. DISCHARGE MEDICATIONS: Flecainide 50 mg b.i.d. Metoprolol and lisinopril were discontinued due to orthostatic hypotension. All other home medications were left unchanged. The patient was seen and examined on the day of discharge. Denies any new complaints. No chest pain, shortness of breath, or palpitations reported. BRIEF HOSPITAL COURSE: The patient is a 64-year-old female with symptomatic PVCs, on metoprolol, presented to the hospital with chest discomfort along with lightheadedness, dizziness, and hypotension. Her blood pressure at home was systolic 60 with diastolic of 40 with heart rate over 100s. Please refer to the history and physical for further details. The patient was admitted to the hospital with a diagnosis of chest discomfort along with hypotension and severe symptomatic PVCs. The patient was monitored on the telemetry unit. Metoprolol dose was reduced to 12.5 mg b.i.d. Despite this, she persistently had orthostatic hypotension with symptomatic PVCs. For this reason , the patient was also evaluated by Electrophysiology, Dr. Krishnamurthy, who recommended adding flecainide 50 mg b.i.d. to suppress PVCs. She was advised to follow up with Electrophysiology and Cardiology in 2 to 3 weeks for possible consideration for LINQ monitor. Lisinopril and metoprolol will be held for now. The patient was advised to monitor blood pressure on a daily basis and to maintain a log. She also had a Cardiolite stress test that was negative for reversible ischemia. There was a small relatively fixed defect at the apex, which may represent scar versus mild apical thinning. An echocardiogram was obtained that showed ejection fraction 55% to 60% with grade 1/3 diastolic dysfunction, mildly dilated left atrium, mild mitral regurgitation, mild tricuspid regurgitation. The patient was planned to be discharged on February 12, 2020, on flecainide. After the first dose of flecainide 50 mg, she developed some nausea and vomiting. For this reason, she was monitored overnight. She was, however, able to tolerate the 2nd and the 3rd doses of flecainide. She also had a loop recorder placed today. The patient has been cleared by Cardiology for discharge. FINAL DIAGNOSES: 1. Chest discomfort, acute coronary syndrome ruled out. 2. Near syncope with orthostatic hypotension. Blood pressure at home was 60/40. 3. Palpitations due to severe symptomatic premature ventricular contractions, started on flecainide this admission. 4. Hypomagnesemia, replaced. 5. History of mitral valve prolapse. 6. Diabetes mellitus type 2. 7. Moderate persistent asthma. 8. History of insulinoma, requiring partial pancreatic resection. 9. Chronic pain syndrome. 10. Dyslipidemia. 11. Chronic kidney disease, stage 2. 12. Obesity with a BMI of 32.1. The patient understands the above plan of care. Job ID: [id number] MTDD
--- NOTE | 2020-02-13 16:05 | PDOC.EP ---
- Subjective Date: 02/13/20 Time: 16:01 Interval History: she is experiencing nausea and vomiting yesterday starting approximately 1 in the afternoon. There was a recurrent episode at 2:00 a.m. his since then no further episodes have occurred. She feels fair and is eager to get home - Review of Systems Respiratory: denies: cough, shortness of breath, wheezing Cardiology: denies: chest pain, edema, light headedness, palpitations Gastrointestinal: reports: nausea, vomitting. denies: abdominal pain, diarrhea Musculoskeletal: denies: unstable gait, falls, leg pain - Objective Allergies/Adverse Reactions: Allergies Allergy/AdvReac Type Severity Reaction Status Date / Time clarithromycin [From Biaxin] Allergy Anaphylaxis Verified 09/28/19 10:52 Penicillins Allergy Anaphylaxis Verified 09/28/19 10:52 shellfish derived Allergy Verified 09/28/19 10:52 sulfamethoxazole Allergy Verified 09/28/19 10:52 [From Bactrim] trimethoprim [From Bactrim] Allergy Verified 09/28/19 10:52 Current Medications Acetaminophen (Tylenol) 650 mg PO Q4H PRN PRN Reason: Headache/Fever/Mild Pain (1-3) Acetaminophen (Tylenol) 650 mg MS Q4H PRN PRN Reason: Headache/Fever/Mild Pain (1-3) Acetaminophen/Codeine Phosphate (Tylenol #3) 1 tab PO Q8H PRN PRN Reason: Moderate Pain (4-6) Last Admin: 02/11/20 08:10 Dose: 1 tab Hydrocodone Bitart/Acetaminophen (Korbel 5/325) 1 tab PO Q4H PRN PRN Reason: Moderate Pain (4-6) Last Admin: 02/10/20 09:34 Dose: 1 tab Hydrocodone Bitart/Acetaminophen (Korbel 5/325) 2 tab PO Q4H PRN PRN Reason: Severe Pain (7-10) Last Admin: 02/13/20 09:16 Dose: 2 tab Aspirin (Ecotrin) 81 mg PO DAILY MONICA Last Admin: 02/13/20 09:17 Dose: 81 mg Calcium Carbonate (Tums) 1,000 mg PO Q4H PRN PRN Reason: Heartburn or Indigestion Last Admin: 02/12/20 21:35 Dose: 1,000 mg Dextrose/Water (Dextrose 50%) 25 gm SLOW IVP PRN PRN PRN Reason: Hypoglycemia Enoxaparin Sodium (Lovenox) 40 mg SC 0900 [facility] Last Admin: 02/13/20 09:17 Dose: 40 mg Glucagon (Glucagon) 1 mg IM PRN PRN PRN Reason: Hypoglycemia Dextrose/Water (D5w) 1,000 mls @ 0 mls/hr IV .Q0M PRN PRN Reason: Hypoglycemia Sodium Chloride (Normal Saline 0.9%) 1,000 mls @ 100 mls/hr IV .Q10H [facility] Last Admin: 02/13/20 05:50 Dose: 1,000 mls Insulin Glargine 10 units/ (Miscellaneous Medication) 0.1 mls @ 0 mls/hr SC [facility] Last Admin: 02/12/20 21:29 Dose: 0.1 mls Insulin Human Lispro (Humalog) 0 units SC .MILD SLIDING SCALE PRN PRN Reason: Mild Correctional Scale Last Admin: 02/13/20 12:32 Dose: 3 unit Metformin HCl (Glucophage) 1,000 mg PO BID-[facility] Last Admin: 02/13/20 09:15 Dose: 1,000 mg Nitroglycerin (Nitrostat) 0.4 mg PO Q5MIN PRN PRN Reason: Chest Pain Promethazine HCl (Phenergan) 25 mg PO Q4H PRN PRN Reason: Nausea Last Admin: 02/12/20 21:35 Dose: 25 mg Senna/Docusate Sodium (Senokot S) 2 tab PO BIDPRN PRN PRN Reason: Constipation Last Admin: 02/13/20 09:37 Dose: 2 tab Trazodone HCl (Desyrel) 200 mg PO [facility] Last Admin: 02/12/20 21:27 Dose: 200 mg Vital Signs & Weight: Vital Signs Temp Pulse Resp BP Pulse Ox 02/13/20 15:52 98.3 F 102 H 16 113/59 L 94 L 02/13/20 12:12 97.7 F 103 H 18 121/59 L 96 02/13/20 09:12 98.7 F 109 H 16 109/55 L 95 Admit Weight 163 lb 14.4 oz Weight 169 lb 12.8 oz I/O: I/O 02/12/20 02/13/20 02/14/20 06:59 06:59 06:59 Intake Total 1200 1370 Output Total 400 Balance 1200 970 - Physical Exam General: alert & oriented x3, appears well, no apparent distress, speech clear, affect appropriate HEENT: mucus membranes moist, normocephaly Neck: supple neck, midline trachea, no JVD/HJR, no masses, no bruit, no lymphadenopathy, no thromegaly Cardiology: regular rate and rhythm, no murmur, regular rate, regular rhythm, PMI nondisplaced Lungs: clear to auscultation, normal breath sounds, normal exam, no wheeze, rales, rhonchi, no wheezes, no rales, no rhonchi Neurology: cranial nerve 2-12 intact, grossly intact, motor function intact, sensory function intact, negative rhomberg, coordination normal, no lateralizing findings - Labs Result Diagrams: 02/12/20 03:57 02/13/20 04:19 - EKG Interpretation EKG Method: Telemetry EKG shows: Sinus rhythm ( PVCs) - Assessment/Plan Assessment/Plan: 1. Frequent PVCs with occasional triplets and bigeminy noted in the past. a. Poor tolerance of beta-marek therapy due to hypotension 2. History of syncope x3. a. Event monitor for 30 days was reportedly negative per Dr. Lopez's office. 3. No evidence of structural heart disease. a. Nuclear stress test from 02/10/2020 shows normal LVEF of 78%, small fixed defect in the apex, scar versus staining. No ischemia. b. 2D echo from 02/10/2020 shows LVEF 55% to 60%, mild left atrial enlargement, mild MR and TR, diastolic dysfunction. 4. History of insulinoma, status post pancreas resection. a. Type 2 diabetes with labile blood sugars. 5. Hypertension. 6. COPD. status post ILR implant today with Dr. Lopez for history of syncope. Her PVCs of quieted some with the addition of low-dose flecainide. She did experience nausea and vomiting starting approximately 3 hours after 1st dose. This is not commonly experienced as a side effect of flecainide. So far today she has tolerated this medication without any further vomiting an EKG is stable. continue low-dose flecainide and okay for discharge by EP. Follow-up in 3-4 weeks is requested. Consider PVC ablation in the future if unable to tolerate flecainide or if refractory to antiarrhythmic therapy.
[2020-02-13 16:40] VITALS: BP 121/60
== END 2020-02-13 17:30 | disposition home or self-care (01) | DRG 262 ==
LOC: ERS 17:18 → OBSVTOIN 19:42 → 2NO 19:42
PROVIDERS: ADMIT Internal Medicine; ATTEND Internal Medicine
PROC: 0JH632Z Insertion of Monitoring Device into Chest Subcutaneous Tissue and Fascia, Percutaneous Approach (ICD-10-PCS; principal; 2020-02-13)
DX: I49.3 Ventricular premature depolarization (principal); R07.89 Other chest pain; Z20.828 Contact with and (suspected) exposure to other viral communicable diseases; E83.42 Hypomagnesemia; I34.1 Nonrheumatic mitral (valve) prolapse; J45.40 Moderate persistent asthma, uncomplicated; I95.1 Orthostatic hypotension; D13.7 Benign neoplasm of endocrine pancreas; G89.4 Chronic pain syndrome; E78.5 Hyperlipidemia, unspecified; I12.9 Hypertensive chronic kidney disease with stage 1 through stage 4 chronic kidney disease, or unspecified chronic kidney disease; N18.2 Chronic kidney disease, stage 2 (mild); J44.9 Chronic obstructive pulmonary disease, unspecified; E11.22 Type 2 diabetes mellitus with diabetic chronic kidney disease; E66.9 Obesity, unspecified; Z90.49 Acquired absence of other specified parts of digestive tract; Z79.4 Long term (current) use of insulin; Z88.1 Allergy status to other antibiotic agents; Z88.0 Allergy status to penicillin; Z88.2 Allergy status to sulfonamides; Z68.32 Body mass index [BMI] 32.0-32.9, adult; Z79.899 Other long term (current) drug therapy
CPT/HCPCS: 33285; 36415; 36416; 71045; 78452; 80048; 80053; 80061; 80069; 82533; 82550; 83036; 83735; 84443; 84484; 85025; 87635; 93005; 93017; 93306; 94760; 96365; 96366; 96372; A9500; C1764; G0378; J1650; J1815; J2785; J3475; J7050; Q0162; Q0169; U0003

== ENCOUNTER 2020-10-13 16:01 | Inpatient (IN) | payer SELFPAY ==
[~2020-10-13 16:01] MED LIST: Iopamidol-370 76% 500 ML 1 ML ONE
[2020-10-13] MEDS ORDERED: Dextrose 50% Abboject 50 ML SYRINGE ONE (16:06)
[2020-10-13 16:20] LABS: Actual Bicarbonate (HCO3v) 26 mEq/L (22-28); Analyzer IN Cardio ER; Base Excess -1.2 mEq/L (-2.0 to +3.0); Calcium, Ionized (venous) 1.19 mmol/L (1.16-1.32); Chloride (VBG) 101 mmol/L (98-106); Hemoglobin (Hb) 13.5 g/dL (11.7-16.0); Sodium 140.2 mmol/L (133-146); pH (venous) 7.29 (7.32-7.43)
[2020-10-13 16:35] LABS: #Basophils 0.1 thou/uL (0.0-0.2); #Eosinphils 0.2 thou/uL (0.0-0.7); #Lymphocytes 1.4 thou/uL (1.20-3.40); #Monocytes 0.7 thou/uL (0.11-0.59); #Neutrophils 5.8 thou/uL (1.40-6.50); %Basophils 0.7 % (0.0-1.0); %Eosinophils 2.8 % (0.0-10.0); %Lymphocytes 16.6 % (21.0-51.0); Hemoglobin 13.7 g/dL (12.0-16.0); Mean Corpuscular HGB CONC 33.2 g/dL (32.0-36.0); Mean Corpuscular Hemoglobin 29.1 pg (27.0-31.0); Mean Corpuscular Volume 87.9 fL (78.0-98.0); Mean Platelet Volume 6.7 fL (7.4-10.4); Platelet Count 314 thou/uL (130-400); RBC Distribution Width 12.7 % (11.5-14.5); Red Blood Cell (RBC) Count 4.69 mill/uL (4.20-5.40); White Blood Cell (WBC) Count 8.2 thou/uL (4.8-10.8)
[2020-10-13 16:55] LABS: ALT (SGPT) 34 U/L (8-55); AST (SGOT) 41 U/L (5-34); Albumin 3.8 g/dL (3.4-4.8); Alkaline Phosphatase 65 U/L (40-110); Anion Gap 13 mmol/L (10-20); BUN (Urea Nitrogen) 13 mg/dL (9.8-20.1); Bilirubin, Total Less than 0.2 mg/dL (0.2-1.2); Calc. Creatinine Clearance 0 mL/min (70-130); Calcium 8.6 mg/dL (7.8-10.44); Carbon Dioxide 24 mmol/L (23-31); Chloride 101 mmol/L (98-107); Globulin 2.7 g/dL (2.4-3.5); Glucose 241 mg/dL (80-115); Lipase 33 U/L (8-78); Potassium 4.3 mmol/L (3.5-5.1); Protein, Total 6.5 g/dL (5.8-8.1); Sodium 134 mmol/L (136-145)
[2020-10-13 17:24] LABS: CKMB 2.7 ng/mL (0-6.6)
[2020-10-13 17:47] LABS: Bilirubin Negative (Negative); Blood, Urine Negative (Negative); Clarity Clear (Clear); Glucose, Urine (Dipstick) >=1000 mg/dL (Negative); Ketone, Urine Negative (Negative); Leukocyte Negative Leu/uL (Negative); Nitrite Negative (Negative); Protein, Urine (Dipstick) 20 mg/dL (Neg-Trace); Specific Gravity, Urine 1.021 (1.002-1.036); Urobilinogen Normal mg/dL (Less than 2); pH, Urine 5.5 (5.0-9.0)
[2020-10-13] MEDS ORDERED: Aspirin Chewable 81 MG TAB ONE (19:18)
[2020-10-13 19:56] LABS: Lactic Acid 2.2 mmol/L (0.5-2.2)
[2020-10-13 20:05] LABS: Troponin I 0.012 ng/mL (< 0.028)
[2020-10-13] MEDS ORDERED: Ondansetron PF 4 MG/2 ML Vial IVP PRN (21:30)
[2020-10-13] MEDS ORDERED: Ondansetron ODT 4 MG TAB SL PRN (21:30)
[2020-10-13] MEDS ORDERED: Acetaminophen 325 MG TAB PO PRN (21:30)
[2020-10-13 22:57] VITALS: BMI 27.1
[2020-10-13 23:17] LABS: Troponin I Less than 0.010 ng/mL (< 0.028)
[2020-10-14] MEDS ORDERED: Dextrose 5% in Water 1,000 ML IV PRN (02:13)
[2020-10-14] MEDS ORDERED: Acetaminophen 325 MG TAB PO PRN (02:13)
[2020-10-14] MEDS ORDERED: Dextrose 50% Abboject 50 ML SYRINGE SLOW IVP PRN (02:13)
[2020-10-14 04:36] LABS: #Eosinphils 0.2 thou/uL (0.0-0.7); #Monocytes 0.6 thou/uL (0.11-0.59); #Neutrophils 3.3 thou/uL (1.40-6.50); %Basophils 0.7 % (0.0-1.0); %Eosinophils 2.6 % (0.0-10.0); %Lymphocytes 32.8 % (21.0-51.0); %Monocytes 10.2 % (0.0-10.0); %Neutrophils 53.8 % (42.0-75.0); Hemoglobin 11.8 g/dL (12.0-16.0); Mean Corpuscular Hemoglobin 28.2 pg (27.0-31.0); Mean Corpuscular Volume 88.2 fL (78.0-98.0); Mean Platelet Volume 6.7 fL (7.4-10.4); Platelet Count 260 thou/uL (130-400); RBC Distribution Width 12.5 % (11.5-14.5); Red Blood Cell (RBC) Count 4.18 mill/uL (4.20-5.40); White Blood Cell (WBC) Count 6.1 thou/uL (4.8-10.8)
[2020-10-14 04:40] LABS: Hemoglobin A1c 6.4 % (4.0-6.0)
[2020-10-14 04:55] LABS: Anion Gap 13 mmol/L (10-20); BUN (Urea Nitrogen) 11 mg/dL (9.8-20.1); Calc. Creatinine Clearance 84 mL/min (70-130); Carbon Dioxide 26 mmol/L (23-31); Chloride 102 mmol/L (98-107); Glucose 165 mg/dL (80-115); Potassium 3.9 mmol/L (3.5-5.1); Sodium 137 mmol/L (136-145)
[2020-10-14 05:53] LABS: SARS-CoV-2 PCR by NAA Not Detected (NotDetected)
[2020-10-14] MEDS ORDERED: Ipratropium Bromide 2.5 ml Neb NEB PRN (08:36)
[2020-10-14] MEDS: Folic Acid 1 MG TAB PO SCH (10:04)
[2020-10-14] MEDS: Flecainide 50 MG TAB PO SCH ×2 (10:04→20:15)
[2020-10-14] MEDS: Lisinopril 10 MG TAB PO SCH (10:04)
[2020-10-14] MEDS: HYDROcodone/Acetaminophen 5/325 mg Tablet PO PRN ×2 (14:31→20:17)
[2020-10-14] MEDS: Insulin Regular 300 UNITS/3 ML VIAL SC PRN (17:43)
[2020-10-14] MEDS ORDERED: Promethazine 25 MG TAB PO PRN (17:45)
[2020-10-14] MEDS ORDERED: traZODone HCl 50 MG TAB PO SCH (21:00)
[2020-10-15 05:39] LABS: #Eosinphils 0.2 thou/uL (0.0-0.7); #Lymphocytes 2.1 thou/uL (1.20-3.40); #Monocytes 0.5 thou/uL (0.11-0.59); #Neutrophils 2.4 thou/uL (1.40-6.50); %Basophils 0.6 % (0.0-1.0); %Eosinophils 3.2 % (0.0-10.0); %Lymphocytes 40.1 % (21.0-51.0); %Monocytes 10.5 % (0.0-10.0); %Neutrophils 45.6 % (42.0-75.0); Hemoglobin 11.7 g/dL (12.0-16.0); Mean Corpuscular HGB CONC 32.7 g/dL (32.0-36.0); Mean Corpuscular Hemoglobin 28.9 pg (27.0-31.0); Mean Corpuscular Volume 88.3 fL (78.0-98.0); Mean Platelet Volume 6.9 fL (7.4-10.4); Platelet Count 226 thou/uL (130-400); RBC Distribution Width 12.5 % (11.5-14.5); Red Blood Cell (RBC) Count 4.04 mill/uL (4.20-5.40); White Blood Cell (WBC) Count 5.2 thou/uL (4.8-10.8)
[2020-10-15] MEDS ORDERED: Levothyroxine Sodium 25 MCG TAB PO SCH (06:00)
[2020-10-15 06:06] LABS: Anion Gap 9 mmol/L (10-20); BUN (Urea Nitrogen) 13 mg/dL (9.8-20.1); Calc. Creatinine Clearance 83 mL/min (70-130); Calcium 8.7 mg/dL (7.8-10.44); Carbon Dioxide 29 mmol/L (23-31); Chloride 107 mmol/L (98-107); Glucose 195 mg/dL (80-115); Magnesium 1.9 mg/dL (1.6-2.6); Phosphorus 3.2 mg/dL (2.3-4.7); Potassium 4.6 mmol/L (3.5-5.1); Sodium 140 mmol/L (136-145)
[2020-10-15] MEDS: Lisinopril 10 MG TAB PO SCH (08:12)
[2020-10-15] MEDS: Folic Acid 1 MG TAB PO SCH (08:12)
[2020-10-15] MEDS: Flecainide 50 MG TAB PO SCH (08:12)
[2020-10-15] MEDS: Insulin Regular 300 UNITS/3 ML VIAL SC PRN (08:14)
[2020-10-15] MEDS: HYDROcodone/Acetaminophen 5/325 mg Tablet PO PRN (08:34)
[2020-10-15 11:50] VITALS: BP 115/54; TEMP 98.1
== END 2020-10-15 14:25 | disposition home or self-care (01) | DRG 638 ==
LOC: ERS 16:01 → 2NO 19:26 → OBSVTOIN 10-14 08:40 → ONC 10-14 21:19
PROVIDERS: ADMIT Internal Medicine; ATTEND Internal Medicine
DX: E11.649 Type 2 diabetes mellitus with hypoglycemia without coma (principal); I50.32 Chronic diastolic (congestive) heart failure; G92 Toxic encephalopathy; M06.9 Rheumatoid arthritis, unspecified; E78.5 Hyperlipidemia, unspecified; E03.9 Hypothyroidism, unspecified; J45.40 Moderate persistent asthma, uncomplicated; R77.8 Other specified abnormalities of plasma proteins; Z90.411 Acquired partial absence of pancreas; Z88.8 Allergy status to other drugs, medicaments and biological substances; Z88.0 Allergy status to penicillin; Z91.013 Allergy to seafood; Z79.4 Long term (current) use of insulin; Z79.899 Other long term (current) drug therapy; Z79.890 Hormone replacement therapy; Z90.49 Acquired absence of other specified parts of digestive tract; Z82.49 Family history of ischemic heart disease and other diseases of the circulatory system
CPT/HCPCS: 36415; 36416; 74177; 80048; 80053; 81003; 82553; 82805; 83036; 83605; 83690; 83735; 84100; 84443; 84484; 85025; 87086; 87635; 93005; 94640; 96374; G0378; J1815; J7620; Q9967; U0003; U0005

== ENCOUNTER 2021-05-19 15:45 | Emergency (ER) | payer SELFPAY ==
[2021-05-19 16:17] LABS: #Basophils 0.1 thou/uL (0.0-0.2); #Eosinphils 0.3 thou/uL (0.0-0.7); #Lymphocytes 2.2 thou/uL (1.20-3.40); #Monocytes 0.6 thou/uL (0.11-0.59); #Neutrophils 4.3 thou/uL (1.40-6.50); %Eosinophils 3.9 % (0.0-10.0); %Lymphocytes 29.8 % (21.0-51.0); %Monocytes 7.9 % (0.0-10.0); %Neutrophils 57.3 % (42.0-75.0); Hemoglobin 11.3 g/dL (12.0-16.0); Mean Corpuscular HGB CONC 32.6 g/dL (32.0-36.0); Mean Corpuscular Hemoglobin 26.6 pg (27.0-31.0); Mean Corpuscular Volume 81.5 fL (78.0-98.0); Mean Platelet Volume 6.7 fL (7.4-10.4); Platelet Count 378 thou/uL (130-400); RBC Distribution Width 14.6 % (11.5-14.5); Red Blood Cell (RBC) Count 4.26 mill/uL (4.20-5.40); White Blood Cell (WBC) Count 7.5 thou/uL (4.8-10.8)
[2021-05-19 16:37] LABS: ALT (SGPT) 17 U/L (8-55); AST (SGOT) 19 U/L (5-34); Albumin 4.5 g/dL (3.4-4.8); Alkaline Phosphatase 105 U/L (40-110); Anion Gap 15 mmol/L (10-20); BUN (Urea Nitrogen) 23 mg/dL (9.8-20.1); Bilirubin, Total 0.2 mg/dL (0.2-1.2); Calc. Creatinine Clearance 0 mL/min (70-130); Calcium 10.2 mg/dL (7.8-10.44); Carbon Dioxide 27 mmol/L (23-31); Chloride 101 mmol/L (98-107); Globulin 3.1 g/dL (2.4-3.5); Potassium 3.7 mmol/L (3.5-5.1); Protein, Total 7.6 g/dL (5.8-8.1); Sodium 139 mmol/L (136-145)
[2021-05-19 16:50] LABS: Glucose 45 mg/dL (80-115)
== END 2021-05-19 18:25 | disposition home or self-care (01) ==
LOC: ERS 15:45
DX: E11.649 Type 2 diabetes mellitus with hypoglycemia without coma (principal); R06.00 Dyspnea, unspecified; I48.91 Unspecified atrial fibrillation; J45.909 Unspecified asthma, uncomplicated; I34.1 Nonrheumatic mitral (valve) prolapse; Z79.82 Long term (current) use of aspirin; Z79.4 Long term (current) use of insulin; Z79.891 Long term (current) use of opiate analgesic; Z79.899 Other long term (current) drug therapy
CPT/HCPCS: 36416; 71045; 71275; 80053; 83880; 84484; 85025; 85379; 93005; Q9967